=== PATIENT | female | born 1960 | race Caucasian/White ===

== ENCOUNTER → 2016-12-10 | Outpatient (CLI) | payer BC ==
[~2016-12-10] MED LIST: CARI350T PO; CELE100C PO; CONJ0.3T3 PO; IBUP-1451 PO; LORA-741 PO; NF656; PREG75CA PO
--- NOTE | 2016-12-10 15:50 | DIAGNOSTIC IMAGING REPORT ---
BILATERAL KNEES 4 VIEWS EACH HISTORY: Bilateral knee pain. COMPARISON: Bilateral knees 12/14/2014. FINDINGS: Standing AP, lateral, tunnel, and sunrise views were obtained. No acute fracture or dislocation within the right or left knee. Mild hypertrophy of the tibial spines and tiny tricompartmental marginal osteophytes. This is not significantly changed. There is mild cartilage space narrowing within the medial compartment of the right knee which is slightly progressed. No knee effusions. IMPRESSION: 1. No fractures within the bilateral knees. 2. Mild bilateral osteoarthritis within the knees which is slightly progressed within the medial compartment of the right knee. Electronically signed by: Lionel Mai M.D. 12/10/2016 3:49 PM Dictated Date/Time: 12/10/2016 3:43 PM
== END | disposition home or self-care (01) ==
LOC: C.RDSM 15:20
PROVIDERS: ATTEND Physical Medicine & Rehabilitation Sports Medicine
DX: M17.0 Bilateral primary osteoarthritis of knee (principal)

== ENCOUNTER → 2017-10-12 | Outpatient (CLI) | payer BC ==
--- NOTE | 2017-10-12 15:19 | DIAGNOSTIC IMAGING REPORT ---
RIGHT KNEE 4 VIEWS HISTORY: RIGHT KNEE PAIN COMPARISON: Right knee 02/04/2016. FINDINGS: There is no fracture or dislocation. Soft tissues are unremarkable. No knee effusion. No significant soft tissue swelling. Mild tricompartmental osteoarthritis, unchanged. IMPRESSION: No fractures. Electronically signed by: Lionel Mai M.D. 10/12/2017 3:17 PM Dictated Date/Time: 10/12/2017 3:15 PM
== END | disposition home or self-care (01) ==
LOC: C.RDSM 15:01
PROVIDERS: ATTEND Physician Assistant
DX: M25.561 Pain in right knee (principal)